=== PATIENT | male | born 1990 ===

== ENCOUNTER 2017-04-06 08:56 | Emergency (ER) | payer BC ==
--- NOTE | 2017-04-06 09:16 | UC ---
Abdominal Pain Male HPI - HPI Summary HPI Summary: complaint of mild abdominal pain that started 4 days ago pain is in RUQ/LUQ intermittent pain and nausea feels bloated after he eats-vomited 1x yesterday softer stool for the first 2 days , diarrhea yesterday 3-4x able to eat and drink but feels nauseated feels fatigued denies fever denies dysuria denies blood in stool recent travel to [facility] and returned 2 days ago took some pepto bismal without relief yesterday - History of Current Complaint Chief Complaint: UCAbdominalPain Stated Complaint: ABD PAIN Time Seen by Provider: 04/06/17 09:11 Hx Obtained From: Patient - Allergies/Home Medications Allergies/Adverse Reactions: Allergies Allergy/AdvReac Type Severity Reaction Status Date / Time No Known Allergies Allergy Verified 04/06/17 09:01 Home Medications: Home Medications Bismuth Subsalicylate [Pepto-Bismol] 262 mg PO DAILY PRN 04/06/17 [History Confirmed 04/06/17] Buprenorphine/Naloxone SL TAB* [Suboxone 8-2 mg SL TAB*] 4 mg PO DAILY 04/06/17 [History Confirmed 04/06/17] PMH/Surg Hx/FS Hx/Imm Hx Previously Healthy: Yes - Surgical History Surgical History: None - Family History Known Family History: Negative: Cardiac Disease, Hypertension, Diabetes - Social History Occupation: Employed Full-time Lives: With Family Alcohol Use: Rare Substance Use Type: None 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 Smoking Status (MU): Former Smoker Review of Systems Constitutional: Negative Skin: Negative Eyes: Negative ENT: Negative Respiratory: Negative Cardiovascular: Negative Gastrointestinal: Abdominal Pain, Diarrhea Genitourinary: Negative Motor: Negative Neurovascular: Negative Musculoskeletal: Negative Neurological: Negative Psychological: Negative All Other Systems Reviewed And Are Negative: Yes Physical Exam Triage Information Reviewed: Yes Appearance: No Pain Distress, Well-Nourished Vital Signs: Initial Vital Signs Temp 98.2 F 04/06/17 09:03 Pulse 55 04/06/17 09:03 Resp 16 04/06/17 09:03 BP 104/67 04/06/17 09:03 Pulse Ox 100 04/06/17 09:03 Vital Signs Reviewed: Yes Eyes: Positive: Conjunctiva Clear ENT: Positive: Pharynx normal, TMs normal Neck: Positive: No Lymphadenopathy Respiratory: Positive: Lungs clear, Normal breath sounds, No respiratory distress, No accessory muscle use Cardiovascular: Positive: RRR, No Murmur, Pulses Normal Abdomen Description: Positive: Nontender, No Organomegaly, Soft. Negative: CVA Tenderness (R), CVA Tenderness (L), Distended, Guarding Bowel Sounds: Positive: Hyperactive Musculoskeletal Exam: Normal Neurological: Positive: Alert Psychological Exam: Normal Skin Exam: Normal Abd Pain Male Course/Dx - Course Course Of Treatment: exam completed. will treat for gastroenteritis-with zofran so he can increase fluids. possibility of infection but will not order stool cultures as he is leaving the state. plan to followup with PCPor urgant care in [facility] of symptoms do not improve. discussed s/s of when to seek medical care and patient states understanding - Differential Dx/Clinical Impression Differential Diagnosis/HQI/PQRI: Gall Bladder Disease, Pancreatitis, Other - gastroenteritis Provider Diagnoses: gastroenteritis Discharge - Discharge Plan Condition: Stable Disposition: HOME Prescriptions: Ondansetron TAB* [Zofran 4 MG Tab*] 4 mg PO Q6H PRN #12 tab PRN Reason: Nausea Patient Education Materials: Gastroenteritis (ED) Referrals: [facility] [Outside] Additional Instructions: take zofran as directed and increase your fluid intake GASTROENTERITIS What is Gastroenteritis? Gastroenteritis is an inflammation of the stomach and bowel that is often called the stomach "flu.'' It should only last 2 or 5 days. You usually get gastroenteritis because you've been in contact with someone who's already infected or because you've eaten contaminated food, or drank contaminated water. Many different viruses can cause intestinal problems but the signs and symptoms are usually the same: watery diarrhea, abdominal cramps, and nausea or vomiting. Symptoms Might Include: Abdominal cramps Diarrhea Nausea Vomiting Blood or mucus in stools Muscle aches Headaches Fever Extreme exhaustion Treatment Recommendations: Decrease activity until you feel better or the diarrhea and vomiting are gone. Take clear liquids, such as katlyn nusrat, cola, water, tea, broth, and gelatin, for the first 24 hours or until the diarrhea and vomiting stops. During the next 24 hours you may eat bland foods like cooked cereals, rice, soup, bread, crackers, baked potatoes, eggs, or applesauce. Do not eat fruits, vegetables, fried or spicy foods, bran, candy, dairy products (such as milk or ice cream), apple juice, or alcoholic beverages. You may go back to your normal diet after 2 to 3 days. Drink 8 to 12 glasses of liquid a day. Most of the problems with gastroenteritis are caused by loss of water through vomiting and diarrhea. You may take ibuprofen (Motrin, Advil) or acetaminophen (Tylenol) for fever and muscle aches. Call Your Doctor or Return Here IF: Your symptoms last for more than 3 days. You have severe pain in the abdomen (area around the stomach) or rectum. You have a high temperature. You find blood, mucus, or worms in your stool. You have signs of dehydration (water loss), including dry mouth, excessive thirst, crinkled skin, little or no urination, dizziness, or light-headedness. You have any other new symptoms that worry you.
== END 2017-04-06 09:31 | disposition home or self-care (01) ==
LOC: UCEAST 08:56
DX: K52.9 Noninfective gastroenteritis and colitis, unspecified (principal); Z87.891 Personal history of nicotine dependence
CPT/HCPCS: 99202; G0463